=== PATIENT | female | born 1970 | race Caucasian/White ===

== ENCOUNTER 2022-10-17 16:48 | Emergency (ER) | payer OTHER ==
[~2022-10-17] VITALS: Ht 162.6 cm; Wt 77.1 kg
[2022-10-17 16:53] VITALS: BP 129/89
[2022-10-17] MEDS ORDERED: LIDOCAINE 5% 1 EA PATCH TP SCH (18:30)
[2022-10-17] MEDS ORDERED: LORazepam 1 MG TAB PO ONE (18:30)
[2022-10-17] MEDS ORDERED: IBUPROFEN 600 MG TAB PO ONE (18:30)
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
--- NOTE | 2022-10-17 19:30 | NUR ---
ASSUMED CARE OF PT AT THIS TIME. PT IN POSITON OF COMFORT. AWAITING RESULTS. UPDATED PT ON POC WITH FULL RETURNED VERBAL UNDERSTANDING. AWAITING Addendum: 10/17/22 at 1956 by [email or web address] AWAITING ADMISSION AND POSSIBLE BED ASSIGNMENT
[2022-10-17] MEDS ORDERED: MORPHINE SULFATE 4 MG/ML SYR IM ONE (20:15)
[2022-10-17] MEDS ORDERED: CYCL-711 PO (20:21)
--- NOTE | 2022-10-17 20:54 | NUR ---
Dr. Zepeda examining patient.
[2022-10-17 20:55] VITALS: BP 126/78
--- NOTE | 2022-10-17 20:55 | NUR ---
Patient discharged with v/s stable. Written and verbal after care instructions given and explained. Patient alert, oriented and verbalized understanding of instructions. Wheel Chair Assisted with to car. All questions addressed prior to discharge. ID band removed. Patient advised to follow up with PMD. Rx of FLEXERIL given. Patient educated on indication of medication including possible reaction and side effects. Opportunity to ask questions provided and answered.
== END 2022-10-17 20:55 | disposition home or self-care (01) ==
LOC: MED 16:48
DX: S23.41XA Sprain of ribs, initial encounter (principal); M54.50 Low back pain, unspecified; F41.0 Panic disorder [episodic paroxysmal anxiety]; F17.210 Nicotine dependence, cigarettes, uncomplicated; X58.XXXA Exposure to other specified factors, initial encounter; Y93.89 Activity, other specified; Y92.89 Other specified places as the place of occurrence of the external cause; Y99.8 Other external cause status
CPT/HCPCS: 71101; 72110; 96372; 99284; J2270